=== PATIENT | female | born 1975 | race Caucasian/White ===

== ENCOUNTER 2017-02-23 08:33 | Emergency (ER) | payer MEDICAID ==
[~2017-02-23] VITALS: Ht 160 cm; Wt 75.5 kg
[~2017-02-23 08:33] MED LIST: ACET500C5 PO; DICY10CA60 PO; HYDR-3498 PO; MED4DP PO; NO CURRENT MEDS; ONDA4TAB35 PO
[2017-02-23 08:36] VITALS: Ht 160 cm; Wt 75.5 kg
[2017-02-23 09:20] LABS: ADD SCAN DIFF NO
[2017-02-23 09:24] LABS: BASOPHILS % 0.5 % (0.0-2.0); EOSINOPHILS # 0.2 10^3/ul (0.0-0.5); HEMATOCRIT 41.8 % (37.0-47.0); HEMOGLOBIN 13.7 g/dl (12.0-16.0); LYMPHOCYTES % 33.8 % (15.0-51.0); MEAN CORPUSCULAR HEMOGLOBIN 29.4 pg (29.0-33.0); MEAN CORPUSCULAR HGB CONC 32.8 g/dl (32.0-37.0); MEAN CORPUSCULAR VOLUME 89.7 fl (82.0-101.0); MEAN PLATELET VOLUME 11.1 fl (7.4-10.4); MONOCYTE # 0.5 10^3/ul (0.3-0.9); NEUTROPHIL # 3.2 10^3/ul (1.6-7.5); NEUTROPHILS % 53.4 % (39.0-77.0); PLATELET COUNT 236 10^3/UL (140-415); RED BLOOD COUNT 4.66 10^6/ul (4.20-5.40); RED CELL DISTRIBUTION WIDTH 13.2 % (11.5-14.5); WHITE BLOOD COUNT 5.9 10^3/ul (4.8-10.8)
[2017-02-23 09:25] LABS: ADD UMIC NO; URINE BILIRUBIN (Dip) NEGATIVE (NEGATIVE); URINE BLOOD (Dip) NEGATIVE (NEGATIVE); URINE COLOR LT. YELLOW (YELLOW); URINE GLUCOSE (Dip) NEGATIVE (NEGATIVE); URINE KETONES (Dip) NEGATIVE (NEGATIVE); URINE LEUKOCYTE ESTERASE (Dip) NEGATIVE (NEGATIVE); URINE NITRITE (Dip) NEGATIVE (NEGATIVE); URINE TOTAL PROTEIN (Dip) NEGATIVE (NEGATIVE); URINE UROBILINOGEN (Dip) 0.2 E.U./dL (0.1-1.0)
[2017-02-23 09:36] LABS: ALBUMIN 4.5 g/dl (3.3-4.9)
[2017-02-23 09:37] LABS: POTASSIUM 3.9 mmol/L (3.5-5.1)
[2017-02-23 09:39] LABS: ALBUMIN/GLOBULIN RATIO 1.4; BILIRUBIN,INDIRECT 0.3 mg/dl (0-1.1); BILIRUBIN,TOTAL 0.3 mg/dl (0.2-1.3); CREATININE 0.61 mg/dl (0.44-1.00); TOTAL PROTEIN 7.7 g/dl (6.1-8.1)
[2017-02-23 09:40] LABS: CALCIUM 9.4 mg/dl (8.4-10.2)
--- NOTE | 2017-02-23 10:40 | RADRPT ---
PROCEDURE: US Pelvis CLINICAL INDICATION: Pelvic pain. TECHNIQUE: Sonographic evaluation of the pelvis was performed utilizing both transabdominal and tr ansvaginal technique. Curved array transabdominal transducer technique as well as a high frequency endovaginal probe was utilized. Images were reviewed on the high-resolution PACS workstation. COMPARISON: No prior studies are available for comparison. FINDINGS: The uterus is normal in size, measuring 9.0 x 4.8 x 5.9 cm in dimension. The uterine parenchyma is heterogeneous. There is asymmetric thickening of the anterior uterine wall. The uterus is antevert ed in normal position. The endometrium is thickened and homogeneous measuring 17 mm in diameter. The right ovary measures 2.5 x 4.1 x 2.8 cm in dimension. The left ovary measures 3.4 x 1.7 x 1.7 c m in dimension. The ovaries are symmetric in size, echogenicity, and morphology. Normal Doppler fl ow is demonstrated to both ovaries. There are no adnexal masses. There is no significant free flui d in the pelvis. IMPRESSION: 1. Thickened endometrium measuring 17 mm in diameter. 2. The uterine parenchyma is heterogeneous. There is mild asymmetric thickening of the anterior [place] wall. Findings are nonspecific, but can be seen with adenomyosis, although the uterus does not appear enlarged (which is commonly seen with adenomyosis). 3. Unremarkable appearance of the ovaries. RPTAT: HH .Tish House MD, Date Time Electronically viewed and signed by .Tish House MD, on 02/23/2017 10:40 .G/
[2017-02-23] MEDS ORDERED: METR500T PO (10:55)
[2017-02-23] MEDS ORDERED: IBUP-1542 PO (10:56)
--- NOTE | 2017-02-23 11:03 | ERD ---
ER Documentation Chief Complaint Date/Time DATE: 02/23/17 TIME: 10:57 Chief Complaint left side pelvic pain x 3 days HPI This is a 42-year-old female presents to the ER with left-sided lower pelvic pain for the last 3 days. Patient states that pain is sharp and constant it is worse whenever she moves. Patient does admit to foul-smelling vaginal discharge. She is currently sexually active with her of 24 years and is in a monogamous relationship. Patient does not use condoms. Patient does not have any urinary frequency or dysuria she does not have any nausea vomiting or diarrhea. She denies any pain with sexual intercourse. Patient has had tubal ligation and her last normal menstrual period was January. Patient denies any fevers or chills. ROS 12 point review of systems was done, all negative except per HPI. Medications Home Meds Active Scripts Ibuprofen* (Motrin*) 600 Mg Tab, 600 MG PO Q6, #30 TAB Prov:NASEEM VEGA 02/23/17 Metronidazole* (Flagyl*) 500 Mg Tablet, 500 MG PO TID for 7 Days, TAB Prov:NASEEM VEGA 02/23/17 Ondansetron Hcl* (Zofran* ODT) 4 mg -ODT Tab.disper, 4 MG PO Q8 Y for NAUSEA AND /OR VOMITING, #30 TAB Prov:MACARIO BERGERON NP 05/20/16 Dicyclomine Hcl* (Bentyl*) 10 Mg Capsule, 20 MG PO QID, #20 CAP Prov:MACARIO BERGERON NP 05/20/16 Hydrocodone Bit-Acetaminophen* (Gaylord*) 5-325 Mg Tab, 1 TAB PO Q6 Y for PAIN, # 20 TAB Prov:MACARIO BERGERON NP 05/20/16 Acetaminophen* (Tylophen*) 500 Mg Capsule, 1 CAP PO Q6H Y for PAIN AND OR ELEVATED TEMP, #20 CAP Prov:MENG GARCIA PA-C 02/12/16 Methylprednisolone* (Medrol* DOSE PACK) 4 Mg/Dose-Pack Tab.ds.pk, 4 PACKET PO . DIRECTED, #1 PACKET Prov:MENG GARCIA PA-C 02/12/16 Reported Medications [No Current Meds] No Conflict Check 02/18/10 Allergies Allergies: Coded Allergies: No Known Allergy (Verified , 02/18/10) PMhx/Soc Medical and Surgical Hx: pt denies Medical Hx, pt denies Surgical Hx History of Surgery: No Anesthesia Reaction: No Hx Neurological Disorder: No Hx Respiratory Disorders: No Hx Cardiac Disorders: No Hx Psychiatric Problems: No Hx Miscellaneous Medical Probl: No Hx Alcohol Use: No Hx Substance Use: No Hx Tobacco Use: No Smoking Status: Never smoker Physical Exam Vitals Vital Signs Date Time Temp Pulse Resp B/P Pulse Ox O2 Delivery O2 Flow Rate FiO2 02/23/17 08:36 98.4 71 18 185/81 100 Physical Exam GENERAL: The patient is well developed and appropriate for usual state of health , in no apparent distress. HEENT: Atraumatic. CHEST: Clear to auscultation bilaterally. There are no rales, wheezes or rhonchi. HEART: Regular rate and rhythm. No murmurs, clicks, rubs or gallops. ABDOMEN: Soft, nontender and nondistended. Good bowel sounds. No rebound or guarding. No gross peritonitis. No gross organomegaly or masses. No Millan sign or McBurney point tenderness. Patient is tender to palpation in the left lower pelvic area. : patient has foul smelling yellow vaginal discharge. no cervical motion tenderness BACK: No midline or flank tenderness. NEURO: Alert and oriented. Result Diagram: 02/23/1790102/23/17901 Results 24 hrs Laboratory Tests Test 02/23/17 09:02 White Blood Count 5.910^3/ul Red Blood Count 4.6610^6/ul Hemoglobin 13.7g/dl Hematocrit 41.8% Mean Corpuscular Volume 89.7fl Mean Corpuscular Hemoglobin 29.4pg Mean Corpuscular Hemoglobin Concent 32.8g/dl Red Cell Distribution Width 13.2% Platelet Count 37270^3/UL Mean Platelet Volume 11.1fl Neutrophils % 53.4% Lymphocytes % 33.8% Monocytes % 9.0% Eosinophils % 3.0% Basophils % 0.5% Nucleated Red Blood Cells % 0.0/100WBC Neutrophils # 3.210^3/ul Lymphocytes # 2.010^3/ul Monocytes # 0.510^3/ul Eosinophils # 0.210^3/ul Basophils # 0.010^3/ul Nucleated Red Blood Cells # 0.010^3/ul Urine Color LT. YELLOW Urine Clarity CLEAR Urine pH 6.0 Urine Specific [place] >=1.030 Urine Ketones NEGATIVE Urine Nitrite NEGATIVE Urine Bilirubin NEGATIVE Urine Urobilinogen 0.2 E.U./dL Urine Leukocyte Esterase NEGATIVE Urine Hemoglobin NEGATIVE Urine Glucose NEGATIVE% Urine Total Protein NEGATIVE Urine Test NEGATIVE Sodium Level 140mmol/L Potassium Level 3.9mmol/L Chloride Level 103mmol/L Carbon Dioxide Level 25mmol/L Anion Gap 16 Blood Urea Nitrogen 13mg/dl Creatinine 0.61mg/dl Glucose Level 102mg/dl Calcium Level 9.4mg/dl Total Bilirubin 0.3mg/dl Direct Bilirubin 0.00mg/dl Indirect Bilirubin 0.3mg/dl Aspartate Amino Transf (AST/SGOT) 39IU/L Alanine Aminotransferase (ALT/SGPT) 48IU/L Alkaline Phosphatase 65IU/L Total Protein 7.7g/dl Albumin 4.5g/dl Globulin 3.20g/dl Albumin/Globulin Ratio 1.40 Procedures/MDM Differential diagnosis includes but is not limited to; diverticulitis, appendicitis, intra-abdominal abscess, tubo-ovarian abscess, ovarian cyst, ovarian torsion, urinary tract infection, pyelonephritis, nephrolithiasis, STI, bacterial vaginosis. This is a 42-year-old female presents to the ER with left lower pelvic pain. Patient's endometrium was mildly thickened on ultrasound. On pelvic exam patient did have yellow foul-smelling discharge. Patient states she is in a monogamous relationship and does not wish to be treated for possible STI. Patient will be treated for bacterial vaginosis. She will be sent home with ibuprofen for pain. Suspicion for tubo-ovarian abscess or intra- abdominal abscess is low patient is afebrile and well-appearing. Patient's laboratory work was reviewed there is no evidence of leukocytosis, electrolyte abnormality or any other abnormalities. she does have a benign abdominal physical examination. Patient is to follow-up with her primary care doctor in 2 days or return to ER sooner if symptoms worsen. My medical decision making was shared with the patient she understands and agrees with plan. Departure Diagnosis: Primary Impression: Pelvic pain Additional Impression: Bacterial vaginosis Condition: Stable Patient Instructions: Vaginal Infection: Bacterial Vaginosis Additional Instructions: Susan moncada doctor JACKIE restrepo yoni nicolasa ARASH PARA DENTRO DE 1-2 CARRASCO.Dgale a la secretaria que nosotros le instruimos hacer esta arash.Avise o llame si suresh condicin se empeora antes de la arash. Regresa aqui si peor o no mejor. NASEEM VEGA February 23, 2017 11:03
== END 2017-02-23 11:03 | disposition home or self-care (01) ==
LOC: FTE 08:33
DX: R10.2 Pelvic and perineal pain (principal); N76.0 Acute vaginitis
CPT/HCPCS: 76830; 76856; 80053; 81003; 84703; 85025; Z7502; 99284